=== PATIENT | male | born 1965 | race African-American/Black ===

== ENCOUNTER 2017-03-08 20:16 | Observation (INO) | payer MEDICAID ==
[~2017-03-08] VITALS: Ht 177.8 cm; Wt 127.0 kg
[~2017-03-08 20:16] MED LIST: CARI-277 PO; NOR10T GT
[2017-03-08] MEDS ORDERED: SODIUM CHLORIDE 0.9% 1,000 ML IVB ONE (20:49)
[2017-03-08 21:32] LABS: Basophils # (auto) 0 uL; Basophils % (auto) 0.4 % (0.0-2.0); DEFINITIVE VIEW TRANSMISSION; Eosinophils # (auto) 0.4 uL; Eosinophils % (auto) 3.1 % (0.0-7.0); Hematocrit 42.6 % (41.0-53.0); Hemoglobin 13.6 g/dL (13.5-17.5); Lymphocytes # (auto) 3.2 uL; Lymphocytes % (auto) 27.8 % (10.0-50.0); Mean Corpuscular Hgb Conc. 31.8 g/dL (32.0-36.0); Mean Corpuscular Volume 81.6 fL (80.0-100.0); Mean Platelet Volume 7.8 fL (7.4-10.4); Monocytes # (auto) 1.1 uL; Monocytes % (auto) 9.7 % (0.0-12.0); Neutrophils # (auto) 6.8 uL; Platelet Count (auto) 288 10^3/uL (140-450); Red Cell Distribution Width 17.8 % (11.6-16.0); White Blood Cell 11.5 10^3/uL (4.4-10.8)
[2017-03-08 21:38] LABS: Urine Blood Negative /uL (Negative); Urine Color Yellow (Yellow); Urine Glucose Normal (Normal); Urine Hyaline Cast MOD /lpf (0 - 2); Urine Ketone TRACE (Negative); Urine Mucus FEW (None Seen); Urine Nitrite Negative (Negative); Urine RBC 3 /hpf (0 - 3); Urine Squamous Epithelial Cell FEW /hpf (<5); Urine pH 5.5 (5.0-8.0)
[2017-03-08 21:56] LABS: Salicylate < 1.7 mg/dL (2.8-20.0)
[2017-03-08 22:00] LABS: Acetaminophen < 2.0 ug/mL (10-30)
[2017-03-08 22:20] LABS: Urine Bilirubin Negative (Negative)
[2017-03-09 02:21] VITALS: BP 155/85
== END 2017-03-09 03:56 | disposition home or self-care (01) | DRG 812 ==
LOC: EDBD 20:18 → ER 20:18 → EDUNIT# 20:18 → OVERFLOW 23:57 → ER 03-09 03:56
PROVIDERS: ADMIT Emergency Medicine; ATTEND Emergency Medicine
DX: T43.625A Adverse effect of amphetamines, initial encounter (principal); Z82.49 Family history of ischemic heart disease and other diseases of the circulatory system; Y92.89 Other specified places as the place of occurrence of the external cause; Z83.3 Family history of diabetes mellitus
CPT/HCPCS: 36415; 70450; 71010; 80320; 80329; 81001; 82962; 85025; 93005; 96360; 96361; 99285; G0378; G0434

== ENCOUNTER 2017-07-20 03:26 | Emergency (ER) | payer MEDICAID ==
[~2017-07-20] VITALS: Ht 177.8 cm; Wt 111.1 kg
[2017-07-20 04:18] LABS: Basophils # (auto) 0 uL; Basophils % (auto) 0.3 % (0.0-2.0); CONDITION Y; Eosinophils # (auto) 0.2 uL; Eosinophils % (auto) 2.2 % (0.0-7.0); Hematocrit 36.3 % (41.0-53.0); Hemoglobin 11.7 g/dL (13.5-17.5); Lymphocytes # (auto) 2.1 uL; Lymphocytes % (auto) 21.2 % (10.0-50.0); Mean Corpuscular Hemoglobin 27.2 pg (28.0-32.0); Mean Corpuscular Hgb Conc. 32.3 g/dL (32.0-36.0); Mean Corpuscular Volume 84.3 fL (80.0-100.0); Mean Platelet Volume 7.2 fL (7.4-10.4); Monocytes % (auto) 10.3 % (0.0-12.0); Neutrophils # (auto) 6.4 uL; Platelet Count (auto) 309 10^3/uL (140-450); Red Cell Distribution Width 17.8 % (11.6-16.0); White Blood Cell 9.8 10^3/uL (4.4-10.8)
[2017-07-20 04:33] LABS: INR 1.02 (0.9-1.15); Partial Thromboplastin Time 28.2 sec (22.64-33.71); Prothrombin Time 11.1 sec (9.37-12.3)
[2017-07-20 04:38] LABS: Albumin 3.5 g/dL (3.4-5.0); Anion Gap 10 (5-15); Blood Urea Nitrogen 21 mg/dL (7-18); Calcium 8.8 mg/dL (8.5-10.1); Carbon Dioxide 25 mmol/L (21-32); Chloride 114 mmol/L (98-107); Glucose 97 mg/dL (74-106); Magnesium 2.6 mg/dL (1.6-2.6); Sodium 149 mmol/L (136-145)
[2017-07-20 04:40] LABS: Potassium 2.7 mmol/L (3.5-5.1)
[2017-07-20 04:41] LABS: Aspartate Aminotransferase 24 U/L (15-37); GFR African American 123 mL/min; GFR Non-African American 102 mL/min
[2017-07-20 04:46] LABS: Alkaline Phosphatase 75 U/L (45-117); Bilirubin, Total 0.4 mg/dL (0.2-1.0); Total Protein 7.5 g/dL (6.4-8.2)
[2017-07-20 04:52] LABS: Temperature: 22.7 C (20.0-25.0)
[2017-07-20] MEDS ORDERED: SODIUM CHLORIDE 0.9% 1,000 ML IV ONE (09:27)
[2017-07-20] MEDS ORDERED: POTASSIUM CHL 10% (20 MEQ/15ML) 15ml ORAL SOLN PO ONE (09:30)
[2017-07-20 12:00] VITALS: BP 136/88
== END 2017-07-20 15:08 | disposition home or self-care (01) ==
LOC: EDBD 03:26 → ER 03:33
DX: R41.82 Altered mental status, unspecified (principal); J18.9 Pneumonia, unspecified organism; R07.9 Chest pain, unspecified; E87.6 Hypokalemia; I10 Essential (primary) hypertension; E11.9 Type 2 diabetes mellitus without complications; Z85.46 Personal history of malignant neoplasm of prostate; R06.02 Shortness of breath
CPT/HCPCS: 36415; 70450; 71020; 80053; 83735; 83880; 84443; 84484; 85025; 85610; 85730; 93005; 94761; 96360; 99285; J7030

== ENCOUNTER 2020-05-13 18:01 | Emergency (ER) | payer MEDICAID ==
[~2020-05-13] VITALS: Ht 177.8 cm; Wt 104.3 kg
[2020-05-13 18:34] LABS: Basophils # (auto) 0 10 ^3/uL (0-0.2); Basophils % (auto) 0.6 % (0.0-2.0); Eosinophils # (auto) 0.2 10 ^3/uL (0-0.8); Eosinophils % (auto) 2.7 % (0.0-7.0); Hematocrit 36.9 % (41.0-53.0); Hemoglobin 11.8 g/dL (13.5-17.5); Lymphocytes # (auto) 1.3 10 ^3/uL (0.4-5.4); Lymphocytes % (auto) 22.5 % (10.0-50.0); Mean Corpuscular Hgb Conc. 32.1 g/dL (32.0-36.0); Monocytes # (auto) 0.6 10 ^3/uL (0-1.3); Monocytes % (auto) 10.9 % (0.0-12.0); Neutrophils # (auto) 3.8 10 ^3/uL (1.6-8.6); Neutrophils % (auto) 63.3 % (37.0-80.0); Nucleated Red Blood Cells % 0.1 %; Platelet Count (auto) 131 10^3/uL (140-450); Red Blood Cells 4.39 10^6/uL (4.5-5.90); Red Cell Distribution Width 16.6 % (11.8-14.3)
[2020-05-13 18:49] LABS: Alanine Aminotransferase 20 U/L (16-61); Albumin 3.5 g/dL (3.4-5.0); Anion Gap 5 (5-15); Aspartate Aminotransferase 25 U/L (15-37); Blood Alcohol < 3.0 mg/dL (0-5); Blood Urea Nitrogen 18 mg/dL (7-18); Calcium 8.5 mg/dL (8.5-10.1); Carbon Dioxide 26 mmol/L (21-32); Chloride 112 mmol/L (98-107); GFR African American 112 mL/min; GFR Non-African American 93 mL/min; Glucose 85 mg/dL (74-106); Potassium 3.7 mmol/L (3.5-5.1); Sodium 143 mmol/L (136-145)
[2020-05-13 18:54] LABS: Alkaline Phosphatase 76 U/L (45-117); Bilirubin, Total 0.4 mg/dL (0.2-1.0)
[2020-05-13 21:45] VITALS: BP 136/67
[2020-05-13] MEDS ORDERED: OXYCODONE W/ ACETAMINOPHEN 5/325MG TABLET PO ONE (22:00)
[2020-05-13 22:15] LABS: INR 1.02 (0.9-1.15); Partial Thromboplastin Time 28.5 sec (23.64-32.05)
[2020-05-14] MEDS ORDERED: FUROSEMIDE 20 MG/2 ML VIAL IV ONE (01:15)
[2020-05-14] MEDS ORDERED: ACETAMINOPHEN 325 MG TAB PO PRN (03:30)
[2020-05-14] MEDS ORDERED: DOCUSATE SOD 100 MG CAP PO PRN (03:30)
[2020-05-14] MEDS ORDERED: ONDANSETRON HCL 4 MG/2 ML VIAL IV PRN (03:30)
[2020-05-14] MEDS ORDERED: HYDROcodone-ACET 5/325MG TAB PO PRN (03:30)
[2020-05-14] MEDS ORDERED: HYDROcodone-ACET 10/325MG TAB GT SCH (06:00)
[2020-05-14] MEDS ORDERED: CARISOPRODOL 350 MG TAB PO SCH (06:00)
== END 2020-05-14 04:06 | disposition home or self-care (01) ==
LOC: ER 18:01 → EDBD 18:01 → EDUNIT# 18:01 → ER 05-14 04:06
DX: I11.0 Hypertensive heart disease with heart failure (principal); I50.9 Heart failure, unspecified; R60.9 Edema, unspecified; R53.1 Weakness
CPT/HCPCS: 36415; 70450; 71045; 80053; 80320; 83880; 84484; 85025; 85610; 85730; 93005; 93970

== ENCOUNTER 2020-07-25 12:16 | Emergency (ER) | payer MEDICAID ==
[~2020-07-25] VITALS: Ht 162.6 cm; Wt 108.9 kg
[2020-07-25] MEDS ORDERED: SODIUM CHLORIDE 0.9% 1,000 ML IV ONE (12:45)
[2020-07-25 13:15] VITALS: BP 130/65
[2020-07-25 15:54] LABS: Alcohol, Urine < 3.0 mg/dL (0-10); Amphetamine Screen, Urine POSITIVE (NEGATIVE); Barbiturate Scree,Urine NEGATIVE (NEGATIVE); Benzodiazephine Screen, Urine NEGATIVE (NEGATIVE); Cannabinoid Screen, Urine NEGATIVE (NEGATIVE); Cocaine Screen, Urine NEGATIVE (NEGATIVE); Opiate Scree,Urine NEGATIVE (NEGATIVE); Phencyclidine Screen, Urine POSITIVE (NEGATIVE)
== END 2020-07-25 15:11 | disposition home or self-care (01) ==
LOC: EDBD 12:16 → ER 12:16
DX: R56.9 Unspecified convulsions (principal); I10 Essential (primary) hypertension; E86.0 Dehydration; I89.0 Lymphedema, not elsewhere classified; F15.10 Other stimulant abuse, uncomplicated
CPT/HCPCS: 70450; 80307; 96360; 96361; 99284; J7030

== ENCOUNTER 2020-07-27 15:16 | Emergency (ER) | payer MEDICAID ==
[~2020-07-27] VITALS: Ht 177.8 cm; Wt 120.2 kg
[2020-07-27 18:00] LABS: Basophils # (auto) 0.1 10 ^3/uL (0-0.2); Basophils % (auto) 0.9 % (0.0-2.0); Eosinophils # (auto) 0.1 10 ^3/uL (0-0.8); Hematocrit 36.8 % (41.0-53.0); Hemoglobin 11.8 g/dL (13.5-17.5); Lymphocytes # (auto) 1.4 10 ^3/uL (0.4-5.4); Lymphocytes % (auto) 23.4 % (10.0-50.0); Mean Corpuscular Hgb Conc. 32.1 g/dL (32.0-36.0); Mean Corpuscular Volume 83.9 fL (80.0-100.0); Monocytes # (auto) 0.8 10 ^3/uL (0-1.3); Monocytes % (auto) 12.5 % (0.0-12.0); Neutrophils # (auto) 3.8 10 ^3/uL (1.6-8.6); Neutrophils % (auto) 61.2 % (37.0-80.0); Platelet Count (auto) 133 10^3/uL (140-450); Red Blood Cells 4.39 10^6/uL (4.5-5.90); Red Cell Distribution Width 17.3 % (11.8-14.3); White Blood Cell 6.1 10^3/uL (4.4-10.8)
[2020-07-27 19:25] VITALS: BP 140/78
[2020-07-27 19:28] LABS: Albumin 3.2 g/dL (3.4-5.0); BUN/Creatinine Ratio 11.3; Calcium 9.3 mg/dL (8.5-10.1); Potassium 3.3 mmol/L (3.5-5.1)
[2020-07-27 19:31] LABS: Bilirubin, Total 0.6 mg/dL (0.2-1.0); Total Protein 6.8 g/dL (6.4-8.2)
[2020-07-27] MEDS ORDERED: AMOXICILLIN/CLAVUL 875 MG TAB PO ONE (19:45)
[2020-07-27] MEDS ORDERED: ACETAMINOPHEN 325 MG TAB PO ONE (19:45)
[2020-07-27] MEDS ORDERED: POTASSIUM CHL 20 Meq TABLET PO ONE (19:45)
== END 2020-07-27 21:09 | disposition home or self-care (01) ==
LOC: EDBD 15:16 → ER 15:16
DX: S02.2XXA Fracture of nasal bones, initial encounter for closed fracture (principal); K02.9 Dental caries, unspecified; K42.9 Umbilical hernia without obstruction or gangrene; E86.0 Dehydration; J98.11 Atelectasis; D64.9 Anemia, unspecified; F12.10 Cannabis abuse, uncomplicated; Z71.51 Drug abuse counseling and surveillance of drug abuser; J44.9 Chronic obstructive pulmonary disease, unspecified; E11.9 Type 2 diabetes mellitus without complications; I10 Essential (primary) hypertension; Y04.0XXA Assault by unarmed brawl or fight, initial encounter; Y93.89 Activity, other specified; Y92.89 Other specified places as the place of occurrence of the external cause; Y99.8 Other external cause status
CPT/HCPCS: 36415; 70450; 70486; 71045; 72125; 74176; 80053; 83880; 84484; 85025; 93005